=== PATIENT | female | born 1985 | race Caucasian/White ===

== ENCOUNTER → 2018-11-15 | Outpatient (CLI) | payer BC, MEDICAID ==
[~2018-11-15] MED LIST: ACYC-108; DOCU100C37 PO; DOXY100C2 PO; FLC150T PO; HYDR-2890 PO; HYDR-3455 PO; HYDR-3583 PO; IBUP-1780 PO; NITR-65 PO; OXYC-465 PO; PHEN-640 PO; PNV1TABL81 PO; RANI150T46 PO; VALA500T4 PO
--- NOTE | 2018-11-15 10:35 | NUR ---
TO WS FOR ORDERED RHOGAM ADMINISTRATION.
--- NOTE | 2018-11-15 11:30 | NUR ---
LAB CALLED [facility] IS READY.
--- NOTE | 2018-11-15 11:50 | NUR ---
AMBULATED TO HOME SELF CARE. NO CONCERNS VOICED, AND NO CONCERNS NOTED BY THIS RN
== END ==
LOC: WSo 10:29
PROVIDERS: ATTEND Obstetrics & Gynecology
DX: Z31.82 Encounter for Rh incompatibility status (principal)
CPT/HCPCS: 96372

== ENCOUNTER 2018-12-17 13:32 | Outpatient (CLI) | payer BC, MEDICAID ==
[~2018-12-17] VITALS: Ht 157.5 cm; Wt 75.4 kg
--- NOTE | 2018-12-17 13:21 | NUR ---
ERNESTINA MAI presented to unit from home, accompanied by child, with c/o NAUSEA/Diarrhea/Abdominal Pain. ERNESTINA MAI weighed, gowned, voided, and to bed. EFHM and TOCO applied, VS taken. ERNESTINA MAI oriented to bed controls, call light, TV, heat, and A/C controls.
[2018-12-17 13:29] VITALS: BP 122/72
[~2018-12-17 13:32] MED LIST changes: +RANI-613 PO; -RANI150T46 PO
--- NOTE | 2018-12-17 13:53 | NUR ---
Dr. Ansari notified of patient's arrival, complaints, and EFM. New orders received.
[2018-12-17] MEDS ORDERED: D5 LR IV SOLUTION 1,000 ML IV ONE ×2 (13:57→14:00)
--- NOTE | 2018-12-17 14:10 | NUR ---
IV started, see intervention.
--- NOTE | 2018-12-17 14:16 | NUR ---
Straight cath performed.
[2018-12-17 14:30] LABS: BASOPHILS % (AUTO) 0 % (0-10); EOSINOPHILS # (AUTO) 0.1 10^3/uL (0.0-0.3); EOSINOPHILS % (AUTO) 1 % (0-10); HEMATOCRIT 32 % (35-52); HEMOGLOBIN 10.8 G/DL (11.5-16.0); LYMPHOCYTES # (AUTO) 0.4 X 10^3 (1.0-4.0); LYMPHOCYTES % (AUTO) 5 % (12-44); MEAN CORPUSCULAR HEMOGLOBIN 30 PG (25-34); MEAN CORPUSCULAR HGB CONC 33 G/DL (32-36); MEAN CORPUSCULAR VOLUME 91 FL (80-99); MEAN PLATELET VOLUME 12.1 FL (7.4-10.4); MONOCYTES # (AUTO) 0.6 X 10^3 (0.0-1.0); MONOCYTES % (AUTO) 8 % (0-12); NEUTROPHILS # (AUTO) 7.1 X 10^3 (1.8-7.8); NEUTROPHILS % (AUTO) 86 % (42-75); PLATELET COUNT 136 10^3/uL (130-400); RED CELL DISTRIBUTION WIDTH 14.6 % (10.0-14.5); WHITE BLOOD COUNT 8.2 10^3/uL (4.3-11.0)
[2018-12-17 14:32] LABS: BILIRUBIN,URINE NEGATIVE (NEGATIVE); CLARITY,URINE CLEAR; COLOR,URINE YELLOW; GLUCOSE, URINE (UA) NEGATIVE (NEGATIVE); KETONES,URINE 3+ (NEGATIVE); LEUKOCYTE ESTERASE ,URINE NEGATIVE (NEGATIVE); NITRITE,URINE NEGATIVE (NEGATIVE); PH,URINE 6 (5-9); PROTEIN,URINE NEGATIVE (NEGATIVE); UROBILINOGEN,URINE NORMAL (NORMAL)
[2018-12-17 14:51] LABS: ALANINE AMINOTRANSFERASE 14 U/L (0-55); ALBUMIN 3.2 GM/DL (3.2-4.5); ALKALINE PHOSPHATASE 65 U/L (40-136); BILIRUBIN,TOTAL 0.4 MG/DL (0.1-1.0); BUN/CREATININE RATIO 11; CALCIUM 9.9 MG/DL (8.5-10.1); CARBON DIOXIDE 18 MMOL/L (21-32); CHLORIDE 105 MMOL/L (98-107); CREATININE SERUM 0.64 MG/DL (0.60-1.30); GFR ESTIMATED > 60; GLUCOSE 75 MG/DL (70-105); POTASSIUM 3.2 MMOL/L (3.6-5.0); SODIUM 135 MMOL/L (135-145); TOTAL PROTEIN 6.1 GM/DL (6.4-8.2); URIC ACID 3.5 MG/DL (2.6-7.2)
[2018-12-17 14:57] LABS: BAND NEUTROPHILS 5 %; BASOPHILS % (MANUAL) 0 %; EOSINOPHILS % (MANUAL) 0 %; LYMPHOCYTES % (MANUAL) 5 %; MONOCYTES % (MANUAL) 3 %; NEUTROPHILS % (MANUAL) 87 %; RBC MORPH NORMAL
[2018-12-17 15:00] LABS: BACTERIA,URINE NEGATIVE /HPF
--- NOTE | 2018-12-17 16:18 | NUR ---
Dr. Ansari updated on patient's status. New orders received.
[2018-12-17] MEDS ORDERED: D5 LR IV SOLUTION 1,000 ML IV SCH (16:30)
--- NOTE | 2018-12-17 16:55 | NUR ---
Discharge instructions reviewed with patient both written and verbally. Patient verbalizes understanding and denies any current questions or concerns at this time.
--- NOTE | 2018-12-17 17:32 | NUR ---
IV fluids completed. IV DC'd, tip intact.
--- NOTE | 2018-12-17 17:36 | NUR ---
Patient discharged at this time and ambulated from the unit accompanied by family. No signs or symptoms of distress noted.
[2019-01-08] MEDS ORDERED: DOCU100C37 PO (07:56)
[2019-01-08] MEDS ORDERED: OXYC1TAB12 PO (07:56)
[2019-01-08] MEDS ORDERED: IBUP-1780 PO (07:56)
--- NOTE | 2019-01-08 22:56 | Physician Query-Final Dx ---
JACQUELINE NOLEN 01/08/19 2256: Final Diagnosis Give Final Diagnosis Please give Final Diagnosis Please give Final Diagnosis and add and weeks of gestation CRYSTAL STALEY MD 01/09/19 0752: Final Diagnosis Give Final Diagnosis False labor at 34 weeks gestation JACQUELINE NOLEN Jan 08, 2019 22:56 CRYSTAL STALEY MD Jan 09, 2019 07:52
== END 2018-12-17 17:36 | disposition home or self-care (01) ==
LOC: WSo 13:32 → LDRP 13:34 → WSo 17:36
PROVIDERS: ATTEND Obstetrics & Gynecology
DX: O47.03 False labor before 37 completed weeks of gestation, third trimester (principal); Z3A.34 34 weeks gestation of pregnancy
CPT/HCPCS: 36415; 80053; 81000; 82570; 83615; 84156; 84550; 85007; 85027; 87088; 96360; 96361; 99214

== ENCOUNTER 2019-01-02 05:35 | Outpatient (CLI) | payer BC, MEDICAID ==
[~2019-01-02] VITALS: Ht 157.5 cm; Wt 77.1 kg
== END 2019-01-02 15:59 | disposition home or self-care (01) ==
LOC: PREOP 05:35
PROVIDERS: ATTEND Obstetrics & Gynecology
DX: Z01.818 Encounter for other preprocedural examination (principal)

== ENCOUNTER 2019-01-07 03:02 | Inpatient (IN) | payer BC, MEDICAID ==
[2019-01-07] VITALS (10 sets, daily range): BP systolic 92–136; BP diastolic 45–90
[~2019-01-07] VITALS: Ht 157.5 cm; Wt 77.1 kg
--- NOTE | 2019-01-07 08:01 | Discharge Instructions ---
Discharge Instructions Discharge Medications New, Converted or Re-Newed RX: RX on Chart Patient Instructions Patient Instructions: Routine Return to The Hospital For: *As directed Activity & Diet Discharge Diet: No Restrictions Activity as Tolerated: No Orders-Post D/C & Referrals Follow Up Appt: RTC 1 week for incision check. Call to make follow up appt. for patient in 4 weeks. Wound Care: Remove jessica, apply benzoin and steri strips. Activity Per routine post instructions. Please call in RX to patient pharmacy. Diet as tolerated Patient may shower or tub bathe as desired. Continue home meds CRYSTAL STALEY MD Jan 07, 2019 08:01
--- NOTE | 2019-01-07 10:30 | NUR ---
ERNESTINA MAI presented to unit via AMBULATION from HOME, accompanied by S/O, with c/o PREVIOUS. ERNESTINA MAI weighed, gowned, voided, and to bed. EFHM and TOCO applied, VS taken. ERNESTINA MAI oriented to bed controls, call light, TV, heat, and A/C controls.
[2019-01-07] MEDS ORDERED: metroNIDAZOLE 500MG/100ML IVPB 100 ML ONE (10:36)
[2019-01-07] MEDS ORDERED: METOCLOPRAMIDE INJ 10 MG/2 ML (REGLAN) ONE (10:36)
[2019-01-07] MEDS ORDERED: CITRIC ACID/SOB CIT (BICITRA) 30 ML UDC ONE (10:36)
[2019-01-07] MEDS ORDERED: FAMOTIDINE 20MG/2ML IV (PEPCID) ONE (10:36)
[2019-01-07] MEDS ORDERED: AMPICILLIN FOR IV USE 2,000 MG VIAL ONE (10:36)
[2019-01-07] MEDS ORDERED: WATER (STERILE) FOR INJECTION 0 ML ONE (10:37)
[2019-01-07] MEDS ORDERED: ceFAZolin 2 GM/50 ML NS 50 ML IV ONE (11:15)
[2019-01-07] MEDS ORDERED: FAMOTIDINE 20MG/2ML IV (PEPCID) IV ONE (11:15)
[2019-01-07] MEDS ORDERED: METOCLOPRAMIDE INJ 10 MG/2 ML (REGLAN) IV ONE (11:15)
[2019-01-07] MEDS ORDERED: ceFAZolin INJECTION 2,000 MG in WATER (STERILE) FOR INJECTION 10 ML IV ONE (11:15)
[2019-01-07] MEDS ORDERED: CITRIC ACID/SOB CIT (BICITRA) 30 ML UDC PO ONE (11:15)
[2019-01-07] MEDS ORDERED: metroNIDAZOLE 500MG/100ML IVPB 100 ML IV ONE ×2 (11:15)
[2019-01-07] MEDS ORDERED: LACTATED RINGERS 1,000 ML IV SCH (11:15)
[2019-01-07] MEDS: LACTATED RINGERS 1,000 ML IV SCH ×2 (11:18→19:38)
[2019-01-07 11:24] LABS: BASOPHILS % (AUTO) 0 % (0-10); EOSINOPHILS # (AUTO) 0.2 10^3/uL (0.0-0.3); EOSINOPHILS % (AUTO) 3 % (0-10); HEMATOCRIT 32 % (35-52); HEMOGLOBIN 10.4 G/DL (11.5-16.0); LYMPHOCYTES # (AUTO) 1.6 X 10^3 (1.0-4.0); LYMPHOCYTES % (AUTO) 17 % (12-44); MEAN CORPUSCULAR HEMOGLOBIN 30 PG (25-34); MEAN CORPUSCULAR HGB CONC 33 G/DL (32-36); MEAN CORPUSCULAR VOLUME 90 FL (80-99); MEAN PLATELET VOLUME 12.9 FL (7.4-10.4); MONOCYTES # (AUTO) 0.7 X 10^3 (0.0-1.0); MONOCYTES % (AUTO) 7 % (0-12); NEUTROPHILS # (AUTO) 6.7 X 10^3 (1.8-7.8); NEUTROPHILS % (AUTO) 73 % (42-75); PLATELET COUNT 172 10^3/uL (130-400); RED CELL DISTRIBUTION WIDTH 14.5 % (10.0-14.5); WHITE BLOOD COUNT 9.2 10^3/uL (4.3-11.0)
[2019-01-07] MEDS ORDERED: fentaNYL INJECTION 100 MCG/2 ML AMP ONE (11:28)
[2019-01-07] MEDS ORDERED: OXYTOCIN/NORMAL SALINE 1,000 ML IV ONE (11:37)
[2019-01-07] MEDS ORDERED: BUPIVACAINE 0.5% 30 ML (SENSORCAINE) VIAL ONE (12:16)
[2019-01-07] MEDS ORDERED: OXYTOCIN/NORMAL SALINE 500 ML IV ONE (13:30)
--- NOTE | 2019-01-07 13:45 | NUR ---
PT TO ROOM 3308 BY BED, INITIAL PP ASSESSMENT COMPLETED, VSS, FAMILY AT BEDSIDE, SEE INTERVENTIONS.
[2019-01-07] MEDS: KETOROLAC 30 MG/ML VIAL IVP PRN ×2 (13:50→20:30)
[2019-01-07] MEDS: OXYTOCIN/NORMAL SALINE 500 ML IV SCH ×2 (13:50→19:38)
--- NOTE | 2019-01-07 13:50 | NUR ---
SCD'S ON, TORADOL GIVEN SIVP, PT DENIES PAIN OR C/O, FFU/2 LT LOCHIA NOTED.
--- NOTE | 2019-01-07 14:00 | NUR ---
PT RESTING IN BED, NO C/O NOTED, FAMILY AT BEDSIDE, WILL MONITOR CLOSED.
[2019-01-07] MEDS ORDERED: D5 LR IV SOLUTION 1,000 ML IV SCH (15:04)
[2019-01-07] MEDS ORDERED: KETOROLAC 30 MG/ML VIAL ONE (15:09)
[2019-01-07] MEDS ORDERED: MEASLES,MUMPS,RUBELLA 1 EA INJ SC ONE (15:15)
[2019-01-07] MEDS ORDERED: ONDANSETRON 4 MG/2 ML (SDV) Z0FRAN IVP PRN (15:15)
[2019-01-07] MEDS ORDERED: TETANUS,DIPTH,PERTUSS P/F (BOOSTRIX) 0.5 ML VIAL IM ONE (15:15)
--- NOTE | 2019-01-07 16:21 | OPERATIVE REPORT ---
DATE OF SERVICE: 01/07/2019 PREOPERATIVE DIAGNOSIS: Term at 37 weeks gestation with gestational diabetes and oligohydramnios. POSTOPERATIVE DIAGNOSIS: Term at 37 weeks gestation with gestational diabetes and oligohydramnios. OPERATIVE PROCEDURE: Repeat low transverse delivery of a viable male with Apgars of 7 and 8 at 1 and 5 minutes respectively, weight of 5 pounds 9 ounces. time of 12:12 and a cord blood gas pH is pending. OPERATIVE DESCRIPTION: With the patient in supine position under satisfactory spinal analgesia, she was prepped and draped in the usual fashion for abdominal surgery. Schreiber catheter was placed in the urinary bladder. A repeat Pfannenstiel incision was made through skin with scalpel by removing the patient's previous Pfannenstiel incisional scar. The abdomen was entered in the usual manner. Bladder retractor placed in position, clean scalpel used to make a 4 cm hysterotomy incision transversely across segment. That area was exceedingly thin comprised of membranes and peritoneum only for an area of approximately 5 cm transversely and 2 cm cephalad, the incision was made in the midst of that area. Small amount of clear fluid was released on hysterotomy. The incision was extended bluntly and then a vigorous viable male infant was delivered via the uterine incision. The had Apgars as noted and stats as noted above. The umbilical cord was doubly clamped. There was a single nuchal cord that was easily released. After delivery, the cord was clamped doubly and cut. The passed to the pediatric nurse in attendance for delivery. Cord bloods were obtained. The placenta delivered spontaneously Barr. It was normal with a 3-vessel cord. The uterus was exteriorized and interior wiped clean with a wet laparotomy sponge. Uterine incision then closed with a running locked suture of 2-0 Vicryl. Hemostasis was complete. The uterus was returned to abdominal cavity. All blood clot and debris removed from the abdominal cavity. sponge, needle counts correct, hemostasis assured. Anterior parietal peritoneum was closed with a running suture of 2-0 Vicryl. Rectus muscles were closed with that suture as well. The rectus fascia was closed with 2-0 Vicryl and the skin was stapled. Sponge and needle counts were correct on completion of the procedure. Estimated blood loss was around 500 mL. The patient was transferred to recovery room in stable condition. The had remained with the mom. Job ID: [id number] DocumentID: [id number] Dictated Date: 01/07/2019 12:31:45 [employer] Date: 01/07/2019 16:20:24 Dictated By: CRYSTAL STALEY MD
--- NOTE | 2019-01-07 16:30 | NUR ---
Report from Juan Merritt RN. Pt is drinking and eating without difficulty. Voided and ambulating in room, had visited baby in nursery. SCD's on - plans to rest. Pain rating 4. IV infusing.
[2019-01-07] MEDS: D5 LR IV SOLUTION 1,000 ML IV SCH ×2 (17:37→19:38)
[2019-01-07] MEDS: DOCUSATE SODIUM 100 MG (COLACE) CAP PO SCH (20:30)
[2019-01-07] MEDS ORDERED: DOCUSATE SODIUM 100 MG (COLACE) CAP PO SCH (21:00)
[2019-01-08] VITALS: BP 116/71
[2019-01-08] MEDS: KETOROLAC 30 MG/ML VIAL IVP PRN (02:06)
[2019-01-08 04:00] VITALS: BP 114/62
[2019-01-08] MEDS: D5 LR IV SOLUTION 1,000 ML IV SCH (05:51)
[2019-01-08] MEDS: LACTATED RINGERS 1,000 ML IV SCH (05:51)
--- NOTE | 2019-01-08 07:45 | NUR ---
Dr. Ansari to room to see pt. No further orders rec'd, continue with current plan of care.
--- NOTE | 2019-01-08 07:52 | History & Physical ---
History and Physical Date Seen by Provider: Jan 07, 2019 Time Seen by Provider: 11:45 This patient is a 33-year-old white female admitted for repeat delivery at 37 weeks gestation. She is a gestational diabetic with severe oligohydramnios. She denies rupture membranes or bleeding. Her GBS culture was negative. She has had good blood sugar control with diet. Allergies are none Medications are vitamins Medical social and surgical histories are per the antepartum record H ENT exam is normal Neck is supple no lymphadenopathy no thyromegaly Abdomen is gravid soft nontender nondistended Extremities show no clubbing cyanosis. There is no Homans sign. Pelvic exam is deferred monitor shows normal heart rate pattern with an occasional contraction. Assessment and plan term at 37 weeks gestation with gestational diabetes and progressively decreasing amniotic fluid index. Plan is for admission and proceed with repeat delivery Allergies and Home Medications Allergies Coded Allergies: No Known Drug Allergies (Unverified , 01/06/16) Home Medications No Active Prescriptions or Reported Meds Patient Home Medication List Home Medication List Reviewed: Yes Clinical Quality Measures DVT/VTE Risk/Contraindication: Risk Factor Score Per Nursin RFS Level Per Nursing on Admit: 1=Low/No VTE PPX CRYSTAL STALEY MD Jan 08, 2019 07:52
--- NOTE | 2019-01-08 07:53 | Progress Note ---
Standard Progress Note Progress Notes/Assess & Plan Date Seen by a Provider: Jan 08, 2019 Time Seen by a Provider: 07:52 Progress/Assessment & Plan This patient is without complaint. She is ablating, voiding, tolerating oral intake well has good pain control. Vital Signs 01/08/19 04:00 Temp 97.7 Pulse 88 Resp 18 B/P (MAP) 114/62 (79) Pulse Ox 97 O2 Delivery Room Air Vital signs are stable. Patient is afebrile. Fundus is firm below the umbilicus and nontender. The surgical incision is clean dry and intact. Extremities show clubbing cyanosis. There is no Homans sign. Assessment and plan postoperative day number 1 status post repeat delivery doing well. Plan is for routine convalescence care. CRYSTAL STALEY MD Jan 08, 2019 07:53
[2019-01-08] MEDS ORDERED: DOCU100C37 PO (07:56)
[2019-01-08] MEDS ORDERED: IBUP-1780 PO (07:56)
[2019-01-08] MEDS ORDERED: OXYC1TAB12 PO (07:56)
[2019-01-08] MEDS ORDERED: HYDROCORTISONE 2.5% CREAM (ANUSOL-HC) 30 GM TOP SCH (09:00)
[2019-01-08 09:41] VITALS: BP 143/81
[2019-01-08] MEDS: DOCUSATE SODIUM 100 MG (COLACE) CAP PO SCH ×2 (09:44→22:06)
[2019-01-08] MEDS: IBUPROFEN 800 MG (MOTRIN) TAB PO SCH ×3 (09:44→22:06)
[2019-01-08] MEDS: oxyCODONE/APAP 10/325MG (PERCOCET 10) TABLET PO PRN ×2 (09:44→15:52)
--- NOTE | 2019-01-08 10:50 | NUR ---
TO ROOM TO ANSWER CALL LIGHT. PT JUST UP TO SHOWER, AFTER SHOWER NOTICED INCISION WAS BLEEDING SLIGHTLY. SCANT BLEEDING NOTED ON L SIDE OF INCISION. TEREZA REMAIN INTACT, EDGES WELL APPROXIMATED. INCISION COVERED WITH ISLAND DRESSING. WILL CONTINUE TO MONITOR.
--- NOTE | 2019-01-08 12:00 | NUR ---
INCISION CHECKED. SCANT BLEEDING NOTED ON ISLAND DRESSING AND NO ACTIVE BLEEDING NOTED AT THIS TIME. WILL CONTINUE TO MONITOR.
[2019-01-08 12:15] VITALS: BP 128/78
--- NOTE | 2019-01-08 14:33 | Anesthesia-Regional Post-Op ---
Regional Patient Condition Mental Status: Alert, Oriented x3 Circulation: Same as Pre-Op Headache: Absent Sensation: Full Recovery Motor Block: Absent Post Op Complications Complications None Follow Up Care/Instructions Patient Instructions None needed. Anesthesia/Patient Condition Patient is doing well, no complaints, stable vital signs, no apparent adverse anesthesia problems. No complications reported per nursing. MANJULA NGUYEN CRNA Jan 08, 2019 14:33
[2019-01-08 15:45] VITALS: BP 135/74
--- NOTE | 2019-01-08 15:54 | NUR ---
RHOGAM GIVEN, SEE INTERVENTION. PT TOLERATES WELL.
[2019-01-08 22:06] VITALS: BP 123/81
[2019-01-09 04:26] VITALS: BP 109/63
[2019-01-09] MEDS: IBUPROFEN 800 MG (MOTRIN) TAB PO SCH ×2 (04:26→10:49)
--- NOTE | 2019-01-09 07:48 | Progress Note ---
Standard Progress Note Progress Notes/Assess & Plan Date Seen by a Provider: Jan 09, 2019 Time Seen by a Provider: 07:47 Progress/Assessment & Plan This patient is without complaint. She is ablating, voiding, tolerating oral intake well has good pain control. Vital Signs 01/08/19 04:00 Temp 97.7 Pulse 88 Resp 18 B/P (MAP) 114/62 (79) Pulse Ox 97 O2 Delivery Room Air Vital signs are stable. Patient is afebrile. Fundus is firm below the umbilicus and nontender. The surgical incision is clean dry and intact. Extremities show clubbing cyanosis. There is no Homans sign. Assessment and plan postoperative day number 1 status post repeat delivery doing well. Plan is for routine convalescence care. January 09, 2019 Patient is without complaint. She is ablating, voiding, tolerating oral intake well has good pain control. Patient is requesting discharge home. Vital Signs 01/09/19 04:26 Temp 97.8 Pulse 85 Resp 18 B/P (MAP) 109/63 (78) Pulse Ox 98 O2 Delivery Room Air Vital signs are stable. Patient is afebrile. Fundus is firm below the umbilicus and nontender. The surgical incision is c lean dry and intact. Extremities show no clubbing or cyanosis. There is no Homans sign. There is some pretibial pitting edema that is normal. Assessment and plan postoperative day number 2 status post repeat delivery doing well. Plan is for discharge home with follow-up in clinic CRYSTAL STALEY MD Jan 09, 2019 07:48
[2019-01-09 08:57] VITALS: BP 120/84
[2019-01-09] MEDS: DOCUSATE SODIUM 100 MG (COLACE) CAP PO SCH (09:27)
--- NOTE | 2019-01-09 10:30 | NUR ---
Pt in supine position. Removed 27 jessica. Tincture benzoin and steri strips applied with out difficulty. Incision clean and dry. [place] and edges approximate.
[2019-01-09 11:30] VITALS: BP 120/84
--- NOTE | 2019-01-09 11:45 | NUR ---
ERNESTINA MAI demonstrates understanding of discharge instructions and accurately returns instructions upon questioning. Copy of Post-Discharge Instructions and Medication Discharge Instructions given to . ERNESTINA MAI is able to manage continuing needs after discharge. Patients belongings returned to pt. Skin dry and intact; no breakdown noted. Patient discharged from 3308-1 on at 1145 ERNESTINA MAI left floor via wheelchair, accompanied by and staff to private vehicle. .
[2019-01-12] MEDS ORDERED: IBUPROFEN 800 MG (MOTRIN) TAB PO SCH (12:00)
== END 2019-01-09 11:45 | disposition home or self-care (01) | DRG 787 ==
LOC: LDRP 08:45 → WS 13:44 → LDRP 15:10 → WS 15:37
PROVIDERS: ADMIT Obstetrics & Gynecology; ATTEND Obstetrics & Gynecology
PROC: 10D00Z1 Extraction of Products of Conception, Low, Open Approach (ICD-10-PCS; principal; 2019-01-07 11:52)
DX: O34.211 Maternal care for low transverse scar from previous cesarean delivery (principal); O41.03X0 Oligohydramnios, third trimester, not applicable or unspecified; O24.429 Gestational diabetes mellitus in childbirth, unspecified control; Z3A.37 37 weeks gestation of pregnancy; Z37.0 Single live birth
CPT/HCPCS: 36415; 83033; 85025; 86850; 86900; 86901; 87081

== ENCOUNTER 2019-11-24 05:43 | Outpatient (RCR) | payer BC, MEDICAID ==
[~2019-11-24] VITALS: Ht 154 cm; Wt 68.0 kg
[~2019-11-24 05:43] MED LIST changes: +OXYC1TAB12 PO
--- NOTE | 2019-11-24 13:11 | Progress Note-Pre Operative ---
Pre-Operative Progress Note H&P Reviewed The H&P was reviewed, patient examined and no changes noted. Date Seen by Provider: Nov 26, 2019 Time Seen by Provider: 12:46 Date H&P Reviewed: Nov 26, 2019 Time H&P Reviewed: 12:46 Pre-Operative Diagnosis: DUB/CPP/Endometriosis/Ovarian cysts CRYSTAL STALEY MD Nov 24, 2019 13:11
--- NOTE | 2019-11-24 13:12 | Progress Note-Post Operative ---
Post-Operative Progess Note Surgeon (s)/Author (s) Surgeon CRYSTAL STALEY MD Author: Yes Pre-Operative Diagnosis DUB/CPP/Endometriosis/Ovarian cysts Post-Operative Diagnosis same with recurrent endometriosis Procedure & Operative Findings Date of Procedure 11/24/19 Procedure Performed/Findings TLH With BS and right oophorectomy Anesthesia Type GETA Estimated Blood Loss Estimated blood loss (mL): Minimal Specimens/Packing Specimens Removed Uterus/ tubes/ right ovary CRYSTAL STALEY MD Nov 24, 2019 13:12
== END 2019-11-24 14:17 | disposition home or self-care (01) ==
LOC: PREOP 05:43
PROVIDERS: ATTEND Obstetrics & Gynecology
DX: Z01.818 Encounter for other preprocedural examination (principal); Z20.828 Contact with and (suspected) exposure to other viral communicable diseases
CPT/HCPCS: 87635

== ENCOUNTER 2019-11-26 10:51 | Day surgery (SDC) | payer BC, MEDICAID ==
[~2019-11-26] VITALS: Ht 154 cm; Wt 68.0 kg
[2019-11-26] VITALS (8 sets, daily range): BP systolic 110–140; BP diastolic 73–102
[2019-11-26] MEDS ORDERED: ceFAZolin INJECTION 1,000 MG in WATER (STERILE) FOR INJECTION 10 ML IV ONE (11:00)
[2019-11-26] MEDS ORDERED: BUP/EPI 0.5% 1:200,000 (SENSORCAINE) 30 ML VIAL ONE (11:24)
[2019-11-26] MEDS: LACTATED RINGERS 1,000 ML IV PRN ×3 (11:24→14:35)
[2019-11-26 11:33] LABS: BASOPHILS % (AUTO) 1 % (0-10); EOSINOPHILS # (AUTO) 0.2 10^3/uL (0.0-0.3); EOSINOPHILS % (AUTO) 4 % (0-10); HEMATOCRIT 38 % (35-52); HEMOGLOBIN 12.5 G/DL (11.5-16.0); LYMPHOCYTES # (AUTO) 1.7 X 10^3 (1.0-4.0); LYMPHOCYTES % (AUTO) 26 % (12-44); MEAN CORPUSCULAR HEMOGLOBIN 29 PG (25-34); MEAN CORPUSCULAR HGB CONC 33 G/DL (32-36); MEAN CORPUSCULAR VOLUME 87 FL (80-99); MEAN PLATELET VOLUME 11.4 FL (7.4-10.4); MONOCYTES # (AUTO) 0.5 X 10^3 (0.0-1.0); MONOCYTES % (AUTO) 7 % (0-12); NEUTROPHILS # (AUTO) 4.1 X 10^3 (1.8-7.8); NEUTROPHILS % (AUTO) 63 % (42-75); PLATELET COUNT 249 10^3/uL (130-400); RED CELL DISTRIBUTION WIDTH 14.8 % (10.0-14.5); WHITE BLOOD COUNT 6.5 10^3/uL (4.3-11.0)
--- OUTSIDE RECORDS SUMMARY | 2019-11-26 12:02 | XMS REPORT | Continuity of Care Document ---
Author Organization Unknown Address Unknown Phone Unavailable Allergies Active Description Code Type Severity Reaction Onset Reported/Identified Relationship to Patient Clinical Status Yes NKANo Known Allergies NKA Miscellaneous Allergy Unknown N/A 12/10/2006 Yes No Known Drug Allergies [id number] Drug Allergy Unknown N/A 11/19/2019 Medications There is no data. Problems Date Dx Coded Attending Type Code Diagnosis Diagnosed By 03/03/2015 LUÍS AWDE, CRYSTAL Roca Ot O36.0990 MATERNAL CARE FOR OTH RHESUS ISOIMMUN, U 03/03/2015 CRYSTAL STALEY MD, Ot Z3A.00 WEEKS OF GESTATION OF NOT SPEC 05/07/2015 CRYSTAL STALEY MD, Ot D64.9 05/07/2015 CRYSTAL STALEY MD, Ot O34.21 05/07/2015 CRYSTAL STALEY MD, Ot O99.019 05/07/2015 CRYSTAL STALEY MD, Ot Z01.818 05/07/2015 CRYSTAL STALEY MD, Ot Z11.2 05/07/2015 CRYSTAL STALEY MD, Ot Z3A.00 05/07/2015 CRYSTAL STALEY MD, Ot O28.8 05/07/2015 CRYSTAL STALEY MD, Ot Z3A.00 05/09/2015 CRYSTAL STALEY MD, Ot O24.429 GESTATIONAL DIABETES MELLITUS IN CHILDBI 05/09/2015 CRYSTAL STALEY MD, Ot O34.21 MATERNAL CARE FOR SCAR FROM PREVIOUS KAMILA 05/09/2015 CRYSTAL STALEY MD, Ot O41.03X0 OLIGOHYDRAMNIOS, THIRD TRIMESTER, NOT AP 05/09/2015 CRYSTAL STALEY MD, Ot O69.81X0 LABOR AND DEL COMP BY CORD AROUND NECK, 05/09/2015 CRYSTAL STALEY MD, Ot Z37.0 SINGLE LIVE 05/09/2015 LUÍS WADE, CRYSTAL Roca Ot Z3A.37 37 WEEKS GESTATION OF 05/25/2015 CRYSTAL STALEY MD Ot O28.8 05/25/2015 CRYSTAL STALEY MD, Ot Z3A.00 05/25/2015 CRYSTAL STALEY MD Ot O28.8 05/25/2015 CRYSTAL STALEY MD, Ot Z3A.00 07/02/2015 CRYSTAL STALEY MD, Ot D64.9 07/02/2015 CRYSTAL STALEY MD, Ot O34.21 07/02/2015 CRYSTAL STALEY MD, Ot O99.019 07/02/2015 CRYSTAL STALEY MD, Ot Z01.818 07/02/2015 CRYSTAL STALEY MD, Ot Z11.2 07/02/2015 CRYSTAL STALEY MD, Ot Z3A.00 07/02/2015 CRYSTAL STALEY MD, Ot O28.8 07/02/2015 CRYSTAL STALEY MD, Ot Z3A.00 10/14/2015 CRYSTAL STALEY MD, Ot K52.9 NONINFECTIVE GASTROENTERITIS AND COLITIS 10/19/2015 CRYSTAL STALEY MD, Ot D64.9 ANEMIA, UNSPECIFIED 10/19/2015 CRYSTAL STALEY MD, Ot O34.21 MATERNAL CARE FOR SCAR FROM PREVIOUS KAMILA 10/19/2015 CRYSTAL STALEY MD, Ot O99.019 ANEMIA COMPLICATING , UNSPECIFI 10/19/2015 CRYSTAL STALEY MD, Ot Z01.818 ENCOUNTER FOR OTHER PREPROCEDURAL EXAMIN 10/19/2015 CRYSTAL STALEY MD, Ot Z11.2 ENCOUNTER FOR SCREENING FOR OTHER BACTER 10/19/2015 CRYSTAL STALEY MD, Ot Z3A.00 WEEKS OF GESTATION OF NOT SPEC 10/19/2015 CRYSTAL STALEY MD, Ot O28.8 OTHER ABNORMAL FINDINGS ON SCR 10/19/2015 CRYSTAL STALEY MD, Ot Z3A.00 WEEKS OF GESTATION OF NOT SPEC 10/20/2015 CRYSTAL STALEY MD, Ot R10.11 RIGHT UPPER QUADRANT PAIN 10/20/2015 CRYSTAL STALEY MD, Ot R19.7 DIARRHEA, UNSPECIFIED 10/20/2015 CRYSTAL STALEY MD, Ot K52.9 NONINFECTIVE GASTROENTERITIS AND COLITIS 10/26/2015 CRYSTAL STALEY MD, Ot K52.9 NONINFECTIVE GASTROENTERITIS AND COLITIS 10/26/2015 CRYSTAL STALEY MD, Ot R10.10 UPPER ABDOMINAL PAIN, UNSPECIFIED 10/27/2015 CRYSTAL STALEY MD, Ot D64.9 ANEMIA, UNSPECIFIED 10/27/2015 CRYSTAL STALEY MD, Ot O34.21 MATERNAL CARE FOR SCAR FROM PREVIOUS KAMILA 10/27/2015 CRYSTAL STALEY MD, Ot O99.019 ANEMIA COMPLICATING , UNSPECIFI 10/27/2015 CRYSTAL STALEY MD, Ot Z01.818 ENCOUNTER FOR OTHER PREPROCEDURAL EXAMIN 10/27/2015 CRYSTAL STALEY MD, Ot Z11.2 ENCOUNTER FOR SCREENING FOR OTHER BACTER 10/27/2015 CRYTSAL STALEY MD, Ot Z3A.00 WEEKS OF GESTATION OF NOT SPEC 10/27/2015 CRYSTAL STALEY MD, Ot O28.8 OTHER ABNORMAL FINDINGS ON SCR 10/27/2015 CRYSTAL STALEY MD, Ot Z3A.00 WEEKS OF GESTATION OF NOT SPEC 10/27/2015 CRYSTAL STALEY MD, Ot R10.11 RIGHT UPPER QUADRANT PAIN 10/27/2015 CRYSTAL STALEY MD, Ot R19.7 DIARRHEA, UNSPECIFIED 10/27/2015 CRYSTAL STALEY MD, Ot K52.9 NONINFECTIVE GASTROENTERITIS AND COLITIS 10/27/2015 CRYSTAL STALEY MD, Ot K52.9 NONINFECTIVE GASTROENTERITIS AND COLITIS 10/27/2015 CRYSTAL STALEY MD, Ot R10.10 UPPER ABDOMINAL PAIN, UNSPECIFIED 10/29/2015 LUÍS MD, CRYSTAL G Ot R10.11 RIGHT UPPER QUADRANT PAIN 10/29/2015 CRYSTAL STALEY MD, Ot R19.7 DIARRHEA, UNSPECIFIED 10/29/2015 CRYSTAL STALEY MD, Ot K52.9 NONINFECTIVE GASTROENTERITIS AND COLITIS 11/18/2015 GLEN WADE, ZURI Martinez Ot K82.8 OTHER SPECIFIED DISEASES OF GALLBLADDER 11/18/2015 GLEN WADE, ZURI Martinez Ot Z01.818 ENCOUNTER FOR OTHER PREPROCEDURAL EXAMIN 11/24/2015 ZURI CARROLL MD Ot K82.8 OTHER SPECIFIED DISEASES OF GALLBLADDER 11/24/2015 GLEN WADE, ZURI Martinez Ot Z01.818 ENCOUNTER FOR OTHER PREPROCEDURAL EXAMIN 11/24/2015 GLEN WADE, ZURI Martinez Ot K81.1 CHRONIC CHOLECYSTITIS 11/25/2015 ZURI CARROLL MD Ot K81.1 CHRONIC CHOLECYSTITIS 12/09/2015 ZURI CARROLL MD Ot K81.1 CHRONIC CHOLECYSTITIS 01/06/2016 LUIS GILES MD Ot N36.4 2 INTRINSIC SPHINCTER DEFICIENCY (ISD) 01/06/2016 LUIS GILES MD Ot N39.3 STRESS INCONTINENCE (FEMALE) (MALE) 01/06/2016 LUIS GILES MD Ot Z01.8 18 ENCOUNTER FOR OTHER PREPROCEDURAL EXAMIN 01/11/2016 CRYSTAL STALEY MD, Ot D64.9 ANEMIA, UNSPECIFIED 01/11/2016 CRYSTAL STALEY MD, Ot O34.21 MATERNAL CARE FOR SCAR FROM PREVIOUS KAMILA 01/11/2016 CRYSTAL STALEY MD, Ot O99.019 ANEMIA COMPLICATING , UNSPECIFI 01/11/2016 CRYSTAL STALEY MD, Ot Z01.818 ENCOUNTER FOR OTHER PREPROCEDURAL EXAMIN 01/11/2016 CRYSTAL STALEY MD, Ot Z11.2 ENCOUNTER FOR SCREENING FOR OTHER BACTER 01/11/2016 CRYSTAL STALEY MD, Ot Z3A.00 WEEKS OF GESTATION OF NOT SPEC 01/11/2016 CRYSTAL STALEY MD, Ot O28.8 OTHER ABNORMAL FINDINGS ON SCR 01/11/2016 CRYSTAL STALEY MD, Ot Z3A.00 WEEKS OF GESTATION OF NOT SPEC 01/11/2016 CRYSTAL STALEY MD, Ot R10.11 RIGHT UPPER QUADRANT PAIN 01/11/2016 CRYSTAL STALEY MD, Ot R19.7 DIARRHEA, UNSPECIFIED 01/11/2016 CRYSTAL STALEY MD, Ot K52.9 NONINFECTIVE GASTROENTERITIS AND COLITIS 01/11/2016 CRYSTAL STALEY MD, Ot K52.9 NONINFECTIVE GASTROENTERITIS AND COLITIS 01/11/2016 CRYSTAL STALEY MD, Ot R10.10 UPPER ABDOMINAL PAIN, UNSPECIFIED 01/11/2016 TISHA WADE, LUIS Graves Ot N39.3 STRESS INCONTINENCE (FEMALE) (MALE) 11/19/2018 CRYSTAL STALEY MD, Ot Z31.82 ENCOUNTER FOR RH INCOMPATIBILITY STATUS 12/11/2018 CRYSTAL STALEY MD, Ot O36.8130 DECREASED MOVEMENTS, THIRD TRIMEST 12/11/2018 CRYSTAL STALEY MD, Ot Z3A.33 33 WEEKS GESTATION OF 12/17/2018 CRYSTAL STALEY MD, Ot O47.03 FALSE LABOR BEFORE 37 COMPLETED WEEKS OF 12/17/2018 CRYSTAL STALEY MD, Ot Z3A.34 34 WEEKS GESTATION OF 01/02/2019 CRYSTAL STALEY MD, Ot Z01.818 ENCOUNTER FOR OTHER PREPROCEDURAL EXAMIN 01/08/2019 CRYSTAL STALEY MD, Ot Z31.82 ENCOUNTER FOR RH INCOMPATIBILITY STATUS 01/09/2019 CRYSTAL STALEY MD, Ot O24.429 GESTATIONAL DIABETES MELLITUS IN CHILDBI 01/09/2019 CRYSTAL STALEY MD, Ot O34.211 MATERN CARE FOR LOW TRANSVERSE SCAR FROM 01/09/2019 CRYSTAL STALEY MD, Ot O41.03X0 OLIGOHYDRAMNIOS, THIRD TRIMESTER, NOT AP 01/09/2019 CRYSTAL STALEY MD, Ot Z37.0 SINGLE LIVE 01/09/2019 CRYSTAL STALEY MD, Ot Z3A.37 37 WEEKS GESTATION OF 01/09/2019 CRYSTAL STALEY MD, Ot O47.03 FALSE LABOR BEFORE 37 COMPLETED WEEKS OF 01/09/2019 LUÍS WADE, CRYSTAL Roca Ot Z3A.34 34 WEEKS GESTATION OF Procedures Code Description Performed By Per formed On [id number] 05/07/201557V92H1 EX TRACTION OF PRODUCTS OF CONCEPTION, 01/07/2019 Results Test Result Range Urine beta human chorionic gonadotropin (hCG) measurement - 01/11/16 06:15 Urine beta human chorionic gonadotropin (hCG) measurem ent NEGATIVE NEGATIVE Methicillin resistant Staphylococcus aur eus (MRSA) screening culture - 01/11/16 06:20 Methicillin resistant Staphylococcus aureus (MRSA) scr eening culture NEG NRG RH IMMUNE GLOBULIN RHOPHYLAC - 11/15/18 10:56 RH IMMUNE GLOBULIN RHOPHYLAC PRSMD TRFSD 11/15/18 1138 NRG [id number] - 11/15/18 10:56 [id number] 300ug NRG Lot number - 11/15/18 10:56 Lot number [id number] NRG cell screen - 11/15/18 10:56 cell screen [id number] NRG cell screen 02/03/21 NRG Complete blood count (CBC) with automate d white blood cell (WBC) differential - 12/17/18 14:10 Blood leukocytes automated count (number/volume) 8.2 10*3/uL 4.3-11.0 Blood erythrocytes automated count (number/volume) 3.58 10*6/uL 4.35-5.85 Venous blood hemoglobin measurement (mass/volume) 10.8 g/dL 11.5-16.0 Blood hematocrit (volume fraction) 32 % 35-52 Automated erythrocyte mean corpuscular volume 91 [ foz_us] 80-99 Automated erythrocyte mean corpuscular h emoglobin (mass per erythrocyte) 30 pg 25-34 Automated erythrocyte mean corpuscular h emoglobin concentration measurement (mass/volume) 33 g/dL 32-36 Automated erythrocyte distribution width ratio 14. 6 % 10.0- 14.5 Automated blood platelet count (count/volume) 136 10*3/uL 130-400 Automated blood platelet mean volume measurement 12.1 [foz_us] 7.4-10.4 Automated blood neutrophils/100 leukocytes 86 % 42-75 Automated blood lymphocytes/100 leukocytes 5 % 12-44 Blood monocytes/100 leukocytes 8 % 0-12 Automated blood eosinophils/100 leukocytes 1 % 0-10 Automated blood basophils/100 leukocytes 0 % 0-10 Blood neutrophils automated count (number/volume) 7.1 10*3 1.8-7.8 Blood lymphocytes automated count (number/volume) 0.4 10*3 1.0-4.0 Blood monocytes automated count (number/volume) 0. 6 10*3 0.0-1.0 Automated eosinophil count 0.1 10*3/uL 0 .0-0.3 Automated blood basophil count (count/volume) 0.0 10*3/uL 0.0-0.1 Comprehensive metabolic panel - 12/17/18 14:10 Serum or plasma sodium measurement (moles/volume) 135 mmol/L 135-145 Serum or plasma potassium measurement (moles/volume) 3.2 mmol/L 3.6-5.0 Serum or plasma chloride measurement (moles/volume) 105 mmol/L 98-107 Carbon dioxide 18 mmol/L 21-32 Serum or plasma anion gap determination (moles/volume) 12 mmol/L 5-14 Serum or plasma urea nitrogen measurement (mass/volume ) 7 mg/dL 7-18 Serum or plasma creatinine measurement (mass/volume) 0.64 mg/dL 0.60-1.30 Serum or plasma urea nitrogen/creatinine mass ratio 11 NRG Serum or plasma creatinine measurement w ith calculation of estimated glomerular filtration rate > NRG Serum or plasma glucose measurement (mass/volume) 75 mg/dL 70-105 Serum or plasma calcium measurement (mass/volume) 9.9 mg/dL 8.5-10.1 Serum or plasma total bilirubin measurement (mass/volu me) 0.4 mg/dL 0.1-1.0 Serum or plasma alkaline phosphatase macie surement (enzymatic activity/volume) 65 U/L 40-136 Serum or plasma aspartate aminotransfera se measurement (enzymatic activity/volume) 20 U/L 5-34 Serum or plasma alanine aminotransferase measurement (enzymatic activity/volume) 14 U/L 0-55 Serum or plasma protein measurement (mass/volume) 6.1 g/dL 6.4-8.2 Serum or plasma albumin measurement (mass/volume) 3.2 g/dL 3.2-4.5 CALCIUM CORRECTED 10.5 mg/dL 8.5-10.1 Serum or plasma uric acid measurement (m ass/volume) - 12/17/18 14:10 Serum or plasma uric acid measurement (mass/volume) 3.5 mg/dL 2.6-7.2 Serum ragweed IgE antibody assay - 12/17 14:10 Serum ragweed IgE antibody assay 119 U/L 125-220 Manual absolute plasma cell count - 11/20 14:10 Blood monocytes/100 leukocytes 3 % NRG Manual blood segmented neutrophils/100 leukocytes 87 % NRG Blood band neutrophils/100 leukocytes 5 % NRG Manual blood lymphocytes/100 leukocytes 5 % NRG Manual eosinophils/100 leukocytes in nose 0 % NRG Manual blood basophils/100 leukocytes 0 % NRG Blood erythrocyte morphology finding identification NORMAL NRG Urine protein/creatinine mass ratio - 14:15 Urine protein measurement (mass/volume) 10 mg/dL 6-12 Urine creatinine measurement (mass/volume) 107 mg/ dL 30-125 Urine protein/creatinine mass ratio 0.09 NRG Complete urinalysis with reflex to cultu re - 12/17/18 14:15 Urine color determination YELLOW NRG Urine clarity determination CLEAR NR G Urine pH measurement by test strip 6 5-9 Specific gravity of urine by test strip 1.020 1.016-1.022 Urine protein assay by test strip, semi-quantitative NEGATIVE NEGATIVE Urine glucose detection by automated test strip NE GATIVE NEGATIVE Erythrocytes detection in urine sediment by light micr oscopy NEGATIVE NEGATIVE Urine ketones detection by automated test strip 3+ NEGATIVE Urine nitrite detection by test strip NEGATIVE NEGATIVE Urine total bilirubin detection by test strip NEGA TIVE NEGATIVE Urine urobilinogen measurement by automated test strip (mass/volume) NORMAL NORMAL Urine leukocyte esterase detection by dipstick NEG ATIVE NEGATIVE Automated urine sediment erythrocyte cou nt by microscopy (number/high power field) NONE NRG Automated urine sediment leukocyte count by microscopy (number/high power field) NONE NRG Bacteria detection in urine sediment by light microsco py NEGATIVE NRG Squamous epithelial cells detection in u rine sediment by light microscopy 2-5 NRG Crystals detection in urine sediment by light microsco py NONE NRG Casts detection in urine sediment by light microscopy NONE NRG Mucus detection in urine sediment by light microscopy NEGATIVE NRG Complete urinalysis with reflex to culture NO NRG Bacterial urine culture - 12/17/18 14:15 Bacterial urine culture NG NRG Complete blood count (CBC) with automate d white blood cell (WBC) differential - 01/07/19 10:55 Blood leukocytes automated count (number/volume) 9.2 10*3/uL 4.3-11.0 Blood erythrocytes automated count (number/volume) 3.53 10*6/uL 4.35-5.85 Venous blood hemoglobin measurement (mass/volume) 10.4 g/dL 11.5-16.0 Blood hematocrit (volume fraction) 32 % 35-52 Automated erythrocyte mean corpuscular volume 90 [ foz_us] 80-99 Automated erythrocyte mean corpuscular h emoglobin (mass per erythrocyte) 30 pg 25-34 Automated erythrocyte mean corpuscular h emoglobin concentration measurement (mass/volume) 33 g/dL 32-36 Automated erythrocyte distribution width ratio 14. 5 % 10.0- 14.5 Automated blood platelet count (count/volume) 172 10*3/uL 130-400 Automated blood platelet mean volume measurement 12.9 [foz_us] 7.4-10.4 Automated blood neutrophils/100 leukocytes 73 % 42-75 Automated blood lymphocytes/100 leukocytes 17 % 12-44 Blood monocytes/100 leukocytes 7 % 0-12 Automated blood eosinophils/100 leukocytes 3 % 0-10 Automated blood basophils/100 leukocytes 0 % 0-10 Blood neutrophils automated count (number/volume) 6.7 10*3 1.8-7.8 Blood lymphocytes automated count (number/volume) 1.6 10*3 1.0-4.0 Blood monocytes automated count (number/volume) 0. 7 10*3 0.0-1.0 Automated eosinophil count 0.2 10*3/uL 0 .0-0.3 Automated blood basophil count (count/volume) 0.0 10*3/uL 0.0-0.1 Blood type T Indirect antibody screen pa bob - 01/07/19 10:55 WRISTBAND NUMBER [id number] NRG ABO+Rh group AN NRG Blood group antibody screen NEGATIVE NR G Methicillin resistant Staphylococcus aur eus (MRSA) screening culture - 01/07/19 10:55 Methicillin resistant Staphylococcus aureus (MRSA) scr eening culture NEG NRG RH IMMUNE GLOBULIN RHOPHYLAC - 01/08/19 05:45 RH IMMUNE GLOBULIN RHOPHYLAC PRSMD TRFSD 01/08/19 1442 NRG cell screen - 01/08/19 05:45 WRISTBAND NUMBER [id number] G SCREEN LOT NUMBER [id number] [facility] [id number] 1 300ug NRG Erythrocytes./1000 erythrocytes 01/31/19 G cell screen 02/03/21 [facility] Lot number [id number] [facility] Coronavirus SARS-CoV-2 SO 2019 - 0 07:59 Coronavirus Ab [Units/volume] in Serum Negative Negative Complete blood count (CBC) with automate d white blood cell (WBC) differential - 11/26/19 11:20 Blood leukocytes automated count (number/volume) 6.5 10*3/uL 4.3-11.0 Blood erythrocytes automated count (number/volume) 4.33 10*6/uL 4.35-5.85 Venous blood hemoglobin measurement (mass/volume) 12.5 g/dL 11.5-16.0 Blood hematocrit (volume fraction) 38 % 35-52 Automated erythrocyte mean corpuscular volume 87 [ foz_us] 80-99 Automated erythrocyte mean corpuscular h emoglobin (mass per erythrocyte) 29 pg 25-34 Automated erythrocyte mean corpuscular h emoglobin concentration measurement (mass/volume) 33 g/dL 32-36 Automated erythrocyte distribution width ratio 14. 8 % 10.0- 14.5 Automated blood platelet count (count/volume) 249 10*3/uL 130-400 Automated blood platelet mean volume measurement 11.4 [foz_us] 7.4-10.4 Automated blood neutrophils/100 leukocytes 63 % 42-75 Automated blood lymphocytes/100 leukocytes 26 % 12-44 Blood monocytes/100 leukocytes 7 % 0-12 Automated blood eosinophils/100 leukocytes 4 % 0-10 Automated blood basophils/100 leukocytes 1 % 0-10 Blood neutrophils automated count (number/volume) 4.1 10*3 1.8-7.8 Blood lymphocytes automated count (number/volume) 1.7 10*3 1.0-4.0 Blood monocytes automated count (number/volume) 0. 5 10*3 0.0-1.0 Automated eosinophil count 0.2 10*3/uL 0 .0-0.3 Automated blood basophil count (count/volume) 0.0 10*3/uL 0.0-0.1 Encounters ACCT No. Visit Date/Time Discharge Status Pt. Type Provider Facility Loc./Unit Complaint 02/201706/19/2018 17:22:22 06/19/2018 23:59 :59 CLS Outpatient [id number] 03/14/2016 10:25:35 03/14/2016 23:59:5 9 CLS Outpatient [id number] 11/24/2019 05:43:00 14:17:00 DIS Outpatient CRYSTAL STALEY MD Via [facility] PREOP TLH WITH DAVINC I, POSSIBLE BSO [id number] 01/07/2019 08:45:00 11:45:00 DIS Inpatient CRYSTAL STALEY MD [facility] LDRP PREVIOUS [id number] 01/02/2019 05:35:00 15:59:00 DIS Outpatient CRYSTAL STALEY MD [facility] PREOP PREVIOUS [id number] 12/17/2018 13:32:00 17:36:00 DIS Outpatient CRYSTAL STALEY MD [facility] WSo NAUSEA/VOMITTIN G [id number] 12/11/2018 12:23:00 13:27:00 DIS Outpatient CRYSTAL STALEY MD [facility] WSo DECREASED MOVEMENT [id number] 11/15/2018 10:29:00 23:59:59 CLS Outpatient CRYSTAL STALEY MD [facility] WSo RH NEGATIVE [id number] 01/11/2016 06:04:00 016 10:40:00 DIS Outpatient LUIS GILES MD [facility] SDC CYSTO WITH MACROPLASTIQ UE [id number] 01/06/2016 14:43:00 15:07:00 DIS Outpatient LUIS GILES MD [facility] PREOP CYSTO WITH MICROPLASTIQ UE [id number] 11/24/2015 05:49:00 11:30:00 DIS Outpatient ZURI CARROLL MD [facility] DYSKNESIA [id number] 11/18/2015 05:36:00 13:05:00 DIS Outpatient ZURI CARROLL MD [facility] PREOP DYSKNESIA [id number] 10/25/2015 09:44:00 23:59:59 CLS Outpatient CRYSTAL STALEY MD [facility] CARD CHRONIC DIARRHE A, ABD PAIN [id number] 10/19/2015 09:38:00 23:59:59 CLS Outpatient CRYSTAL STALEY MD [facility] RAD CHRONIC DIARHEA , INCREASED ABD PAIN [id number] 10/13/2015 16:47:00 23:59:59 CLS Outpatient CRYSTAL STALEY MD [facility] LAB CHRONIC DIARRHE A, INCREASED ABD PAIN [id number] 05/07/2015 06:19:00 09:50:00 DIS Inpatient CRYSTAL STALEY MD [facility] LDRP PREVIOUS SECTIO N [id number] 05/04/2015 16:00:00 23:59:59 CLS Outpatient CRYSTAL STALEY MD [facility] LABNPT OTHER ABNORMAL FINDING ON SCREENING [id number] 05/04/2015 13:50:00 23:59:59 CLS Outpatient CRYSTAL STALEY MD [facility] PREOP PREVIOUS SECTIO N [id number] 03/03/2015 15:24:00 17:00:00 DIS Outpatient CRYSTAL STALEY MD [facility] WSo RH NEG [id number] 11/26/2019 13:00:00 P EN Preadmit CRYSTAL STALEY MD [facility] DYSFUNCTIONAL UTERINE BLEEDI NG, CPP
--- OUTSIDE RECORDS SUMMARY | 2019-11-26 12:02 | XMS REPORT ---
Author Author Maria Isabel Strauss Organization [facility] Address [address] [place] [address] Care Team Providers Care Pm Technician Name Role Phone DAVID Strauss Unavailable PROBLEMS Type Condition ICD9-CM Code CRY98-AJ Code Onset Dates Condition S tatus SNOMED Code Problem Acute pharyngitis 462 Active 36 8185015 Problem Dysfunction of Eustachian tube 381.81 Active 33744443 Problem Need for prophylactic vaccination and inoculation, Influen za V04.81 Active 771721379 Problem Spasm of muscle 728.85 Active 4535 2006 Problem Unspecified backache 724.5 Active 607122891 Problem Other and unspecified diseases of the oral soft tissues 52 8.9 Active 20901381 ALLERGIES No Information ENCOUNTERS Encounter Location Date Diagnosis [facility] [address] [id number] [place] [address] [id number] 10 Feb, 2017 Allergic contact dermatitis due to plants, except food L23.7 and Itchy skin L29.9 [facility] [address] [facility] [id number] [address] [place] [phone] Apr, [facility] [address] [facility] [id number] [address] [place] [phone] 14 Aug, 2014 [facility] [address] [facility] [id number] [address] [place] [phone] Aug, [facility] [address] [facility] [id number] [address] [place] [phone] Jul, [facility] [address] [facility] [id number] [address] [place] [phone] Jul, [facility] [address] [facility] [id number] [address] [place] [phone] Feb, [facility] [address] [facility] [id number] [address] [place] [phone] Feb, [facility] [address] [facility] [id number] [address] [place] [phone] Jul, [facility] [address] [facility] [id number] [address] [place] [phone] Jul, [facility] [address] [facility] [id number] [address] [place] [phone] Jun, IMMUNIZATIONS No Known Immunizations SOCIAL HISTORY Never Assessed REASON FOR VISIT PLAN OF CARE VITAL SIGNS MEDICATIONS No Known Medications RESULTS No Results PROCEDURES Procedure Date Ordered Result Body Site STREP A ASSAY W/OPTIC Mar 12, 2013 INSTRUCTIONS MEDICATIONS ADMINISTERED No Known Medications MEDICAL (GENERAL) HISTORY Type Description Date Surgical History appendectomy Surgical History gallbladder
--- OUTSIDE RECORDS SUMMARY | 2019-11-26 12:02 | XMS REPORT ---
Author Author Maria Isabel Strauss Organization [facility] Address [address] [place] [address] Care Team Providers Care Lead Mason Tender Name Role Phone DAVID Strauss Unavailable PROBLEMS Type Condition ICD9-CM Code UVA67-OX Code Onset Dates Condition S tatus SNOMED Code Problem Acute pharyngitis 462 Active 36 1395632 Problem Dysfunction of Eustachian tube 381.81 Active 52673480 Problem Need for prophylactic vaccination and inoculation, Influen za V04.81 Active 295663270 Problem Spasm of muscle 728.85 Active 4535 2006 Problem Unspecified backache 724.5 Active 801475273 Problem Other and unspecified diseases of the oral soft tissues 52 8.9 Active 92542589 ALLERGIES No Information ENCOUNTERS Encounter Location Date Diagnosis [facility] [address] [id number] [place], [place] [id number] 10 Feb, 2017 Allergic contact dermatitis due to plant s, except food L23.7 and Itchy skin L29.9 [id number] [facility] [place] [address] 10 Apr, 2016 [facility] [id number] [place] [address] 14 Aug, 2014 [facility] [id number] [place] [address] Aug, [facility] [id number] [place] [address] Jul, [facility] [id number] [place] [address] Jul, [facility] [id number] [place] [address] Feb, [facility] [address] [address] [place] [address] Feb, [facility] [address] [facility] [place] [address] Jul, [facility] [address] [facility] [place] [address] Jul, [facility] [address] [id number] [place] [address] Jun, IMMUNIZATIONS No Known Immunizations SOCIAL HISTORY Never Assessed REASON FOR VISIT PLAN OF CARE VITAL SIGNS Height 67 in 2013-07-31 Weight 161 lbs 2013-07-31 Temperature 98 degrees Fahrenheit 2013-07-31 Heart Rate 110 bpm 2013-07-31 Respiratory Rate 18 2013-07-31 Blood pressure systolic 120 mmHg 2013-07-31 Blood pressure diastolic 84 mmHg 2013-07-31 MEDICATIONS No Known Medications RESULTS No Results PROCEDURES Procedure Date Ordered Result Body Site THER/PROPH/DIAG INJ, SC/IM July 31, 2013 INJ METHYLPRDNISOLONE ACTAT 80 MG July 31, 2013 INSTRUCTIONS MEDICATIONS ADMINISTERED No Known Medications MEDICAL (GENERAL) HISTORY Type Description Date Surgical History appendectomy Surgical History gallbladder
[2019-11-26] MEDS ORDERED: MIDAZOLAM 2 MG/2 ML (VERSED) VIAL ONE (12:06)
[2019-11-26] MEDS ORDERED: proPOfol 200 MG/20 ML (DIPRIVAN) VIAL IV ONE (12:06)
[2019-11-26] MEDS ORDERED: ONDANSETRON 4 MG/2 ML (SDV) Z0FRAN ONE (12:06)
[2019-11-26] MEDS ORDERED: LIDOCAINE PF 2% 5 ML (XYLOCAINE) VIAL ONE (12:06)
[2019-11-26] MEDS ORDERED: LACTATED RINGERS 1,000 ML IV ONE (12:06)
[2019-11-26] MEDS ORDERED: fentaNYL INJECTION 100 MCG/2 ML AMP ONE (12:06)
[2019-11-26] MEDS ORDERED: ROCURONIUM 10 MG/ML 5 ML SYRINGE IV ONE ×2 (12:06→13:52)
[2019-11-26] MEDS ORDERED: DEXAMETHASONE 10 MG/ML (DECADRON) 1 ML VIAL ONE (12:09)
--- NOTE | 2019-11-26 12:42 | Progress Note-Pre Operative ---
Pre-Operative Progress Note H&P Reviewed The H&P was reviewed, patient examined and no changes noted. Date Seen by Provider: Nov 26, 2019 Time Seen by Provider: 12:41 Date H&P Reviewed: Nov 26, 2019 Time H&P Reviewed: 12:42 Pre-Operative Diagnosis: DUB/CPP/Menorrhagia CRYSTAL STALEY MD Nov 26, 2019 12:42
--- NOTE | 2019-11-26 12:43 | Progress Note-Post Operative ---
Post-Operative Progess Note Surgeon (s)/Gas Station Cashier (s) Surgeon CRYSTAL STALEY MD Gas Station Cashier: Yes Pre-Operative Diagnosis DUB/CPP/Menorrhagia Post-Operative Diagnosis same Procedure & Operative Findings Date of Procedure 11/26/19 Procedure Performed/Findings TLH/BS/RO Anesthesia Type GETA Estimated Blood Loss Estimated blood loss (mL): Minimal Specimens/Packing Specimens Removed uterus/tubes/right ovary CRYSTAL STALEY MD Nov 26, 2019 12:43
[2019-11-26] MEDS ORDERED: IBUP-1780 PO (12:44)
[2019-11-26] MEDS ORDERED: DOCU-143 PO (12:44)
[2019-11-26] MEDS ORDERED: OXYC1TAB87 PO (12:44)
--- NOTE | 2019-11-26 12:45 | Discharge Inst-Surgical ---
Discharge Inst-Surgical Depart Medication/Instructions New, Converted or Re-Newed RX: RX on Chart Consults/Follow Up Patient Instructions: as diretced Orders & Referrals Follow Up Appt: RTC Thursday November 28, 2019 at 930 AM for staple removal Call to make follow up appt. for patient in 4 weeks. Activity: Rest for 24 hours, than as tolerated. Wound Care: May remove Band-Aid tomorrow. Replace as desired. Keep incisions clean and dry. Wash daily with soap and water. Please call in RX to patient pharmacy. Diet: As tolerated-Clear Liquids only if nauseated. shower or tub bathe as desired. No driving for 24 hours, no alcoholic beverages for 24 hours, and nothing per vagina (no tampons, douching, or intercourse) for 8 weeks. Patient to return to the clinic as soon as possible for: Temperature greater than 101F, Severe Pain, Foul discharge from incision or vagina, Excessive B leeding (more than a period). Activity Activity as Tolerated: No Diet Discharge Diet: No Restrictions CRYSTAL STALEY MD Nov 26, 2019 12:45
[2019-11-26] MEDS ORDERED: KETOROLAC 30 MG/ML VIAL ONE (13:04)
[2019-11-26] MEDS ORDERED: GLYCOPYRROLATE 0.2 MG/ML (ROBINUL) 2 ML VIAL ONE (13:07)
[2019-11-26] MEDS ORDERED: NEOSTIGMINE 3 MG/3 ML VIAL ONE (13:07)
[2019-11-26] MEDS ORDERED: HYDROmorphone 2 MG/ML VIAL (DILAUDID) ONE (13:30)
[2019-11-26] MEDS ORDERED: SEVOFLURANE (ULTANE) 15 ML INHAL SOLN ONE (13:37)
[2019-11-26] MEDS ORDERED: SUGAMMADEX 500 MG/5 ML VIAL (BRIDION) IV ONE (14:05)
[2019-11-26] MEDS ORDERED: ONDANSETRON 4 MG/2 ML (SDV) Z0FRAN IVP PRN ×3 (14:15→14:45)
[2019-11-26] MEDS ORDERED: HYDROmorphone 2 MG/ML VIAL (DILAUDID) IV ONE (14:15)
[2019-11-26] MEDS ORDERED: D5 LR IV SOLUTION 1,000 ML IV SCH (14:25)
[2019-11-26] MEDS ORDERED: ESTROGENS CONJ IV 25 MG/5 ML (PREMARIN) VIAL ONE (14:27)
[2019-11-26] MEDS ORDERED: MEPERIDINE (DEMEROL) INJ 100 MG/ML IM PRN (14:30)
[2019-11-26] MEDS ORDERED: ESTROGENS CONJ INJECTION 25 MG in WATER (STERILE) FOR INJECTION 5 ML IV ONE (14:30)
[2019-11-26] MEDS ORDERED: KETOROLAC 30 MG/ML VIAL IVP SCH (14:30)
[2019-11-26] MEDS ORDERED: PROMETHAZINE INJ 25 MG/ML (PHENERGAN) AMP IM PRN (14:30)
[2019-11-26] MEDS ORDERED: oxyCODONE/APAP 5/325MG (PERCOCET 5) TABLET PO PRN (14:30)
[2019-11-26] MEDS: WATER (STERILE) FOR INJECTION 10 ML ONE ×2 (14:30→14:32)
[2019-11-26] MEDS ORDERED: fentaNYL INJECTION 100 MCG/2 ML AMP IVP ONE (14:45)
[2019-11-26] MEDS ORDERED: morphine INJ 10 MG/ML 1ML (SYR OR VIAL) IVP ONE (14:45)
[2019-11-26] MEDS ORDERED: MEPERIDINE (DEMEROL) INJ 50 MG/ML IVP ONE (14:45)
--- NOTE | 2019-11-26 15:00 | NUR ---
Arrived to unit via bed. Awake and alert. s.o. at bedside. report received at bedside. plan of care reviewed with pt. fresh ice water at bedside and sandwich tray to bedside table.
--- NOTE | 2019-11-26 15:40 | NUR ---
RT notified of order for IS
--- NOTE | 2019-11-26 17:00 | NUR ---
pt requests baez catheter out. baez dc'd. pad changed. pt up assisted to bathroom. ambulates well with steady gait.
--- NOTE | 2019-11-26 17:35 | NUR ---
pt watching tv denies needs.
--- NOTE | 2019-11-26 18:25 | NUR ---
up to bathroom. pt requests discharge home.
--- NOTE | 2019-11-26 18:25 | NUR ---
void approx 200ml clear yellow urine
--- NOTE | 2019-11-26 18:27 | NUR ---
prescriptions called to [facility] pharmacy
--- NOTE | 2019-11-26 18:28 | NUR ---
pt up ambulating in hallway with .
--- NOTE | 2019-11-26 18:30 | NUR ---
Dr galvan notified of pt request for discharge. Ok'd for discharge.
--- NOTE | 2019-11-26 18:40 | NUR ---
Discharge instructions explained, signed and copy to patient. pt verbalized understanding.
--- NOTE | 2019-11-26 18:50 | NUR ---
Discharged to home. Downstairs in wheelchair per staff and to private vehicle.
--- NOTE | 2019-11-26 22:12 | OPERATIVE REPORT ---
DATE OF SERVICE: 11/26/2019 PREOPERATIVE DIAGNOSES: Chronic pelvic pain, dysfunctional uterine bleeding, menorrhagia, ovarian cyst and history of endometriosis. POSTOPERATIVE DIAGNOSES: Chronic pelvic pain, dysfunctional uterine bleeding, menorrhagia, ovarian cyst and history of endometriosis with recurrent endometriosis. OPERATIVE PROCEDURE: Total laparoscopic hysterectomy with right salpingo-oophorectomy and left salpingectomy as well as cystoscopy. OPERATIVE DESCRIPTION: With the patient in supine position under satisfactory general anesthesia, she was repositioned in dorsal lithotomy position in the [facility] and prepped and draped in the usual fashion for abdominal and vaginal surgery. Urinary bladder was drained via Schreiber catheter to dependent drainage. Weighted speculum placed in posterior fornix of vagina, cervix exposed and grasped anteriorly with single tooth tenaculum. Uterus sounded to 9 cm with uterine sound. Cervix was then serially dilated with Luc dilators to accommodate a Cynthia II manipulator, which was placed using a 6 mm x 8 cm uterine probe and a 25 mm colpotomy ring. Sutures of #1 Vicryl placed at 3 and 9 o'clock position of the cervix to affix the uterus to the manipulator. The patient brought in low dorsal lithotomy position. A 12 mm incision made 6 cm superior to the umbilicus. Veress needle was placed through that incision into the abdominal cavity. Correct placement confirmed with water drop test. The abdomen was insufflated with 2.4 liters of carbon dioxide then the Veress needle was removed and a 12 mm Optiview laparoscopic port placed. Laparoscope was introduced. The abdominal wall was transilluminated and ports of 8 mm were placed 8 cm lateral to the umbilicus at approximately 2 cm superior to the umbilicus through incisions of those sizes. All three port sites were infiltrated with 0.5% lidocaine with epinephrine prior to incision and port placement. The patient was brought into Trendelenburg allowing the bowel spill out of the pelvis. The da Kira column was advanced on the patient and docked and operative instrument placed in right and left lateral ports and I retired to the da Kira console. At the console using the vessel sealer on the right and a bipolar fenestrated grasper on the left, the pelvis was first examined. There was a pretty obvious endometriosis involving the right ovary. There were some adhesions involving the left. These were taken down very carefully for allowing sigmoid to come away from the left IP ligament. Both ureters were seemed to peristalse freely. The uterus was somewhat mottled in appearance consistent with adenomyosis. The appendix was surgically absent. The upper abdomen appeared normal. The laparoscope was brought back to the pelvis. Right fallopian tube was grasped and elevated ovary as well. The IP ligament on the right was clamped, cauterized and divided with the vessel sealer that was continued stepwise across the mesovarium to the round ligament and across the round ligament, across broad ligament then onto the cardinal ligament allowing for removal of the tube and ovary eventually with the uterus on the left side, the mesosalpinx was divided in the same manner allowing for conservation of the left ovary. The dissection was carried to the uteroovarian pedicle was then clamped, cauterized and divided with the vessel sealer and then down across the round ligament, the broad ligament and onto the cardinal ligament. The anterior lower uterine segment peritoneum was exposed and then divided using a monopolar shear in place of the instrument on the right. The colpotomy incision was then started after the bladder was dissected down out of the way at the 12 o'clock position. The incision was made down onto the colpotomy ring and then continued circumferentially until the entire colpotomy ring was exposed. With that done, the uterus was free, it was extracted through the vagina with both tubes and the right ovary still attached. Vaginal cuff was closed with a single suture of V-Loc barbed suture starting from the right angle and continuing across until the cuff was completely closed. Care was taken to ensure inclusion of the uterine vessel pedicles with the angle stitches. With hemostasis complete, no abnormal pathology. Procedure at this point was terminated. The operative instruments were removed under direct vision as were the ports. The abdomen was evacuated of insufflating gas in the process of removing the ports. The ports were removed under direct vision. There was no bleeding noted at any of the port sites. The fascia at the supraumbilical incision was closed with wmcusf-rh-ibbon suture of -0 Vicryl. The skin incisions were closed with jessica. The Schreiber catheter was removed using LR as a distending medium, the bladder was examined with a cystoscope. The bladder wall was intact. Both ureters were seemed to efflux promptly confirming the integrity of the ureters. The cystoscope was removed. The speculum was placed in the vagina. The vaginal cuff was found to be completely intact and completely hemostatic. Schreiber catheter was left to dependent drainage. Sponge and needle counts were correct. Blood loss minimal. The patient now uneventfully awakened from her general anesthesia and transferred to recovery room in stable condition. Job ID: [id number] DocumentID: [id number] Dictated Date: 11/26/2019 13:54:06 Cigar Tobacco Rehandler Date: 11/26/2019 22:12:12 Dictated By: CRYSTAL STALEY MD
[2019-11-27] MEDS ORDERED: DOCUSATE SODIUM 100 MG (COLACE) CAP PO SCH (09:00)
--- NOTE | 2019-11-27 14:11 | Anesthesia-General Post-Op ---
General Patient Condition Mental Status/LOC: Same as Preop Cardiovascular: Satisfactory Nausea/Vomiting: Absent Respiratory: Satisfactory Pain: Controlled Complications: Absent Post Op Complications Complications None Follow Up Care/Instructions Patient Instructions None needed. Anesthesia/Patient Condition Patient Condition Patient is already discharged to home and she was doing well, no complaints, stable vital signs, no apparent adverse anesthesia problems prior to her discharge per nursing staff. NICK TURNER DO Nov 27, 2019 14:11
[2019-11-27] MEDS ORDERED: IBUPROFEN 800 MG (MOTRIN) TAB PO SCH (14:30)
== END 2019-11-26 18:50 | disposition home or self-care (01) ==
LOC: SDC 10:51 → WS 15:13 → SDC 18:50
PROVIDERS: ATTEND Obstetrics & Gynecology
DX: N80.0 Endometriosis of uterus (principal); N80.2 Endometriosis of fallopian tube; N83.201 Unspecified ovarian cyst, right side; G89.29 Other chronic pain; N93.8 Other specified abnormal uterine and vaginal bleeding; N92.1 Excessive and frequent menstruation with irregular cycle; K21.9 Gastro-esophageal reflux disease without esophagitis; Z79.899 Other long term (current) drug therapy; Z90.49 Acquired absence of other specified parts of digestive tract
CPT/HCPCS: 36415; 84703; 85025; 86850; 86900; 86901; 87081; 88307; 94664

== ENCOUNTER → 2020-06-18 | Outpatient (CLI) | payer BC, OTHER ==
[~2020-06-18] MED LIST changes: +DOCU-143 PO; -OXYC-465 PO; +OXYC-556 PO; +OXYC1TAB87 PO
--- NOTE | 2020-06-18 11:35 | Diagnostic Imaging Report ---
INDICATION: Routine screening. No prior mammograms are available for comparison. This a baseline study. 2-D and 3-D bilateral screening mammography was performed with CAD. Scattered fibroglandular densities are identified bilaterally. No spiculated mass or malignant appearing microcalcifications are seen. Axillae are unremarkable. IMPRESSION: BI-RADS Category 1. No mammographic features suspicious for malignancy are identified. ACR BI-RADS Category 1: Negative. Result letter will be mailed to the patient. Note: At least 10% of breast cancer is not imaged by mammography. Dictated by: Dictated on workstation # [id number]
== END ==
LOC: RAD 07:45
PROVIDERS: ATTEND Nurse Practitioner Family
DX: Z12.31 Encounter for screening mammogram for malignant neoplasm of breast (principal); Z80.0 Family history of malignant neoplasm of digestive organs; Z80.3 Family history of malignant neoplasm of breast
CPT/HCPCS: 77063; 77067